=== PATIENT | male | born 2000 | race Caucasian/White ===

== ENCOUNTER 2022-08-19 20:40 | Inpatient (IN) ==
[2022-08-19] MEDS ORDERED: SODIUM CHLORIDE 0.9% 1000ML 1,000 ML IV ONE (21:05)
[2022-08-19] MEDS ORDERED: KETOROLAC TROMETHAMINE 15 MG/ML VIAL IV STA (21:05)
--- NOTE | 2022-08-19 21:14 | Emergency Department Note ---
Impression & Plan Lower abdominal pain, Vomiting, Abnormal abdominal CT scan, Confusion ED Provider Note NAME: MELVI SHAH AGE: 22 SEX: M : 2000 ARRIVES VIA: Ambulance INFORMANT: [Patient][Father, EMS, nursing] ED PROVIDER(S): [Trey Aguirre MD] CHIEF COMPLAINT: Abdominal pain HISTORY OF PRESENT ILLNESS: The patient is a 22-year-old male who has had what the father states is the flu for 3 days. He has had vomiting. No fever reported. He seemed to be getting somewhat better but then tonight, about 3 hours ago, began having severe lower abdominal pain, mostly on the left. He was brought by ambulance. In route, he was given 6 mg IV morphine, 4 mg of IV Zofran. There has been no cough or congestion. The patient actually was given some laxatives as he was not having bowel movements. He is now starting to move his bowels. As per the father, the patient was around other people with similar symptoms. He describes it as a local flu bug. The patient is not answering questions now, his father states that he was fine earlier, he thinks the pain medication made him confused and sleepy. PMHx/PSHx: See Below SOCIAL HISTORY: See Below. PHYSICAL EXAM: GENERAL: Patient is in mild distress from pain. HEENT: No acute trauma, normocephalic atraumatic, mucous membranes dry, no nasal congestion. NECK: No stridor, no adenopathy, no meningismus, trachea is midline. LUNGS: Clear to auscultation bilaterally, no wheeze, no rhonchi, breath sounds equal. HEART: Without murmurs gallops or rubs, regular rate and rhythm. ABDOMEN: Soft, tender to the lower abdomen bilaterally but mostly on the left, no true peritonitis. No abdominal distention. EXTREMITIES: No cyanosis or edema, full range of motion of all the joints without pain or difficulty, no signs for acute trauma. NEUROLOGIC: Somnolent and sleepy, seemingly slightly confused, no acute motor or sensory deficits, no focal weakness. SKIN: No rash, no jaundice, no diaphoresis. Groin: No obvious hernia. DIFFERENTIAL DIAGNOSIS: Appendicitis, diverticulitis, colitis, bowel obstruction, dehydration, electrolyte imbalance, hernia, viral illness, UTI, others. EMERGENCY DEPARTMENT COURSE/PROCEDURES: Prior/Outside records reviewed: EMS records. MEDICAL DECISION MAKING: There is no leukocytosis or concerning anemia. There is a normal platelet count. No renal failure or significant electrolyte abnormality. No concerning liver enzyme elevation. No evidence for pancreatitis. Urinalysis shows trace ketones, no infection. COVID, influenza and RSV test were negative. Chest film per my review did not show pneumonia, free air or pneumothorax. Abdominal and pelvis CT showed some trace to mild free pelvic fluid, no acute surgical process, no bowel obstruction, no free air. No appendicitis. On exam, the patient was tender in the lower abdomen, mostly on the left. He was not febrile. Patient received IV saline, IV morphine, IV Toradol and IV Tylenol. He was given IV Zosyn as empiric antibiotic coverage. I did call and speak with the general surgeon, Dr. Noble. At this point, there is no acute surgical intervention required. Observation in the hospital on the medicine service was felt warranted given his presentation and CT fin dings. I did speak with the radiologist about the CT reading. She confirmed no appendicitis or acute surgical process even on a second read. I spoke to the family, I talked to the patient. The patient is feeling improved. He does not have any groin or flank pain. His pain is in the lower abdomen but mostly on the left. He does feel improved compared to when he first arrived, he is much more comfortable. At this point, the cause for the pain is unclear. A viral illness certainly is a possibility. He may have an enteritis. Hospitalization with a a watch and wait approach has been suggested. I spoke with the case management team, the on-call hospitalist was consulted. Of note, as the patient was somewhat confused on my initial evaluation, I did order a CT of the brain, no acute bleed or mass effect seen. The patient's confusion cleared during his ED stay. The confusion certainly may have been from the medication, morphine, administered prior to arrival. DISPOSITION: The patient's presentation and findings warrant a hospital stay. Past Med/Surg History Medical History No significant medical problems Social History Smoking Status: Never smoker Feels Safe at Home: Yes Allergies Allergies Allergy/AdvReac Type Severity Reaction Status Date / Time No Known Allergies Allergy Verified 08/19/22 21:29 Home Meds Home Medications Medication Instructions Recorded Confirmed No Known Home Medications 08/19/22 08/19/22 Results & Data (ED) Vital Signs Vital Signs - 24 hr 08/19/22 20:53 08/19/22 20:54 08/19/22 20:52 Temperature 36.7 C Temperature Source Oral Pulse Rate 79 71 79 Pulse Rate from SpO2 Sensor 77 Respiratory Rate 17 12 Blood Pressure 114/69 Blood Pressure Mean 84 Pulse Oximetry 95 93 Oxygen Delivery Method Nasal Cannula Oxygen Flow Rate 3 Sepsis Recent Fever Within 48 Hours No Sepsis New/Unexplained Change in Mental Status No Sepsis Action Taken by Nursing No Action Required 08/19/22 21:00 08/19/22 21:00 08/19/22 21:10 Temperature Temperature Source Pulse Rate 64 67 Pulse Rate from SpO2 Sensor 64 67 Respiratory Rate 18 16 Blood Pressure 112/73 Blood Pressure Mean 86 Pulse Oximetry 97 92 Oxygen Delivery Method Oxygen Flow Rate Sepsis Recent Fever Within 48 Hours Sepsis New/Unexplained Change in Mental Status Sepsis Action Taken by Nursing 08/19/22 21:20 08/19/22 21:30 08/19/22 21:30 Temperature Temperature Source Pulse Rate 62 63 Pulse Rate from SpO2 Sensor Respiratory Rate 19 16 Blood Pressure 122/69 Blood Pressure Mean 86 Pulse Oximetry Oxygen Delivery Method Oxygen Flow Rate Sepsis Recent Fever Within 48 Hours Sepsis New/Unexplained Change in Mental Status Sepsis Action Taken by Nursing 08/19/22 21:40 08/19/22 21:50 08/19/22 22:00 Temperature Temperature Source Pulse Rate 78 59 L Pulse Rate from SpO2 Sensor 59 L Respiratory Rate 18 16 Blood Pressure 113/66 Blood Pressure Mean 81 Pulse Oximetry 99 Oxygen Delivery Method Oxygen Flow Rate Sepsis Recent Fever Within 48 Hours Sepsis New/Unexplained Change in Mental Status Sepsis Action Taken by Nursing 08/19/22 22:00 08/19/22 22:10 08/19/22 22:20 Temperature Temperature Source Pulse Rate 73 61 62 Pulse Rate from SpO2 Sensor 68 60 62 Respiratory Rate 19 14 15 Blood Pressure Blood Pressure Mean Pulse Oximetry 98 98 99 Oxygen Delivery Method Oxygen Flow Rate Sepsis Recent Fever Within 48 Hours Sepsis New/Unexplained Change in Mental Status Sepsis Action Taken by Nursing 08/19/22 22:30 08/19/22 22:30 08/19/22 22:57 Temperature Temperature Source Pulse Rate 70 71 Pulse Rate from SpO2 Sensor 63 69 Respiratory Rate 15 17 Blood Pressure 103/61 Blood Pressure Mean 75 Pulse Oximetry 98 93 Oxygen Delivery Method Oxygen Flow Rate Sepsis Recent Fever Within 48 Hours Sepsis New/Unexplained Change in Mental Status Sepsis Action Taken by Nursing 08/19/22 23:00 08/19/22 23:00 08/19/22 23:10 Temperature Temperature Source Pulse Rate 59 L 62 Pulse Rate from SpO2 Sensor 59 L 61 Respiratory Rate 18 14 Blood Pressure 110/72 Blood Pressure Mean 84 Pulse Oximetry 95 98 Oxygen Delivery Method Oxygen Flow Rate Sepsis Recent Fever Within 48 Hours Sepsis New/Unexplained Change in Mental Status Sepsis Action Taken by Assisted Medications Current Medication List: was personally reviewed by me Laboratory Data Attestation: I reviewed the patient's lab results. 08/19/22 20:56 08/19/22 20:56 Lab Results 08/19/22 08/19/22 08/19/22 Range/Units 20:56 20:56 23:00 WBC 8.84 (4.8-10.8) K/ul RBC 4.57 L (4.70-6.10) M/uL Hgb 13.8 L (14.0-18.0) g/dl Hct 39.6 L (42.0-52.0) % MCV 86.7 (80.0-100.0) fL MCH 30.2 (25.0-34.0) pg MCHC 34.8 (32.0-36.0) g/dL RDW Std Deviation 39.1 (36.4-46.3) fL RDW Coeff of Kathrine 12.3 (11.5-14.5) % Plt Count 190 (130-400) K/uL MPV 10.2 (9.4-12.4) fL Immature Gran % (Auto) 0.1 % Neut % (Auto) 63.7 % Lymph % (Auto) 23.6 % Davidson % (Auto) 11.7 % Eos % (Auto) 0.6 % Baso % (Auto) 0.3 % Neut # (Auto) 5.63 (1.40-6.50) K/uL Lymph # (Auto) 2.09 (1.2-3.4) K/uL Davidson # (Auto) 1.03 H (0.11-0.59) K/uL Eos # (Auto) 0.05 (0-0.50) K/uL Baso # (Auto) 0.03 (0-0.2) K/uL Immature Gran # (Auto) 0.01 (0.01-0.20) K/uL Sodium 137 (136-145) mmol/L Potassium 3.6 (3.5-5.1) mmol/L Chloride 101 (98-107) mmol/L Carbon Dioxide 28 (21-32) mmol/L Anion Gap 8 (3-11) BUN 14 (6-23) mg/dl Creatinine 0.74 (0.6-1.4) mg/dl Est Cr Clr Drug Dosing 154.1 ml/min Est GFR ( Amer) > 150.0 ml/min Est GFR (Non-Af Amer) 132.8 ml/min BUN/Creatinine Ratio 18.9 (10-20) Glucose 92 (70-99(Fasting)) mg/dl Calcium 9.0 (8.5-10.1) mg/dl Total Bilirubin 0.6 (0.2-1.0) mg/dl AST 29 (13-39) U/L ALT 26 (7-52) U/L Alkaline Phosphatase 51 (34-104) U/L Total Protein 7.6 (6.0-8.3) gm/dl Albumin 4.3 (3.4-5.0) gm/dl Globulin 3.3 (2.5-4.0) gm/dl Albumin/Globulin Ratio 1.3 (0.9-2) Lipase 10 L (11-82) U/L Urine Color Urine Appearance (Clear) Urine pH (4.5-7.5) Ur Specific Gause (1.000-1.030) Urine Protein (Negative) Urine Glucose (UA) (Negative) Urine Ketones (Negative) Urine Blood (Negative) Urine Nitrite (Negative) Urine Bilirubin (Negative) Urine Urobilinogen (Negative) Ur Leukocyte Esterase (Negative) Urine WBC (Auto) (0-5) /hpf Urine RBC (Auto) (0-4) /hpf U Hyaline Cast (Auto) (0-5) /lpf U Epithel Cells (Auto) (0-5) /lpf Urine Bacteria (Auto) (Negative) SARS-CoV-2 (PCR) NEGATIVE (Negative) Influenza Type A (PCR) Negative (Neg) Influenza Type B (PCR) Negative (Neg) RSV (RT-PCR) Negative (Neg) 08/19/22 Range/Units 23:55 WBC (4.8-10.8) K/ul RBC (4.70-6.10) M/uL Hgb (14.0-18.0) g/dl Hct (42.0-52.0) % MCV (80.0-100.0) fL MCH (25.0-34.0) pg MCHC (32.0-36.0) g/dL RDW Std Deviation (36.4-46.3) fL RDW Coeff of Kathrine (11.5-14.5) % Plt Count (130-400) K/uL MPV (9.4-12.4) fL Immature Gran % (Auto) % Neut % (Auto) % Lymph % (Auto) % Davidson % (Auto) % Eos % (Auto) % Baso % (Auto) % Neut # (Auto) (1.40-6.50) K/uL Lymph # (Auto) (1.2-3.4) K/uL Davidson # (Auto) (0.11-0.59) K/uL Eos # (Auto) (0-0.50) K/uL Baso # (Auto) (0-0.2) K/uL Immature Gran # (Auto) (0.01-0.20) K/uL Sodium (136-145) mmol/L Potassium (3.5-5.1) mmol/L Chloride (98-107) mmol/L Carbon Dioxide (21-32) mmol/L Anion Gap (3-11) BUN (6-23) mg/dl Creatinine (0.6-1.4) mg/dl Est Cr Clr Drug Dosing ml/min Est GFR ( Amer) ml/min Est GFR (Non-Af Amer) ml/min BUN/Creatinine Ratio (10-20) Glucose (70-99(Fasting)) mg/dl Calcium (8.5-10.1) mg/dl Total Bilirubin (0.2-1.0) mg/dl AST (13-39) U/L ALT (7-52) U/L Alkaline Phosphatase (34-104) U/L Total Protein (6.0-8.3) gm/dl Albumin (3.4-5.0) gm/dl Globulin (2.5-4.0) gm/dl Albumin/Globulin Ratio (0.9-2) Lipase (11-82) U/L Urine Color Yellow Urine Appearance Clear (Clear) Urine pH 6.0 (4.5-7.5) Ur Specific Gause 1.037 H (1.000-1.030) Urine Protein Trace H (Negative) Urine Glucose (UA) Negative (Negative) Urine Ketones 1+ H (Negative) Urine Blood Negative (Negative) Urine Nitrite Negative (Negative) Urine Bilirubin Negative (Negative) Urine Urobilinogen Negative (Negative) Ur Leukocyte Esterase Negative (Negative) Urine WBC (Auto) 1-5 (0-5) /hpf Urine RBC (Auto) 0-4 (0-4) /hpf U Hyaline Cast (Auto) 0 (0-5) /lpf U Epithel Cells (Auto) 0-5 (0-5) /lpf Urine Bacteria (Auto) Negative (Negative) SARS-CoV-2 (PCR) (Negative) Influenza Type A (PCR) (Neg) Influenza Type B (PCR) (Neg) RSV (RT-PCR) (Neg) Administered Medications Discontinued Medications Sodium Chloride (Nss 1000ml) 1,000 mls @ 999 mls/hr IV .[id number] ONE Stop: 08/19/22 22:05 Last Infusion: 08/19/22 22:36 Dose: 0 mls/hr Documented By: Admin: 08/19/22 21:41 Dose: 999 mls/hr Documented By: OCTAVIANO Acetaminophen (Ofirmev) 1,000 mg in 100 mls @ 400 mls/hr IV NOW STA Stop: 08/19/22 23:16 Last Infusion: 08/19/22 23:51 Dose: 0 mls/hr Documented By: RSJatinder Admin: 08/19/22 23:29 Dose: 400 mls/hr Documented By: SISSY Piperacillin Sod/Tazobactam Sod (Zosyn) 4.5 gm in 120 mls @ 240 mls/hr IV NOW ONE Stop: 08/20/22 00:03 Last Infusion: 08/20/22 00:15 Dose: 0 mls/hr Documented By: Admin: 08/19/22 23:50 Dose: 240 mls/hr Documented By: SISSY Ioversol (Optiray 350 100ml) 85 ml IV ONCE ONE Stop: 08/19/22 22:45 Last Admin: 08/19/22 22:45 Dose: 85 ml Documented By: MATT Ketorolac Tromethamine (Ketorolac Tromethamine 15 Mg/Ml Vial) 15 mg IV NOW STA Stop: 08/19/22 21:06 Last Admin: 08/19/22 21:42 Dose: 15 mg Documented By: OCTAVIANO Imaging Data My Impression: Chest x-ray: Per my review there is no mediastinal widening, pneumonia or pneumothorax. Radiologist's Impression: Abdomen/Pelvis CT 08/19/22 21:05 Exam(s): CT ABDOMEN + PELVIS With Contrast EXAM: CT Abdomen and Pelvis With Intravenous Contrast CLINICAL HISTORY: Reason for exam: lower abd pain. TECHNIQUE: Axial computed tomography images of the abdomen and pelvis with intravenous contrast. Automated exposure control was utilized for the study. A dose lowering technique was utilized adhering to the principles of ALARA. Moderate artifact from bilateral arms in the field of view. CONTRAST: 85 ml Optiray 350 COMPARISON: None. FINDINGS: Lung bases: Clear. Liver: Unremarkable. Gallbladder and bile ducts: Normal gallbladder. No ductal dilation. Pancreas: No ductal dilation. Spleen: Unremarkable. Adrenals: Unremarkable. No mass. Kidneys and ureters: No obvious pyelonephritis or hydronephrosis. Stomach and bowel: No obstruction. Appendix: Normal, retrocecal. Intraperitoneal space: Trace pelvic free fluid. No free air or significant ascites. Bones/joints: No acute fracture. Soft tissues: Unremarkable. Vasculature: No abdominal aortic aneurysm. Lymph nodes: No enlarged lymph nodes. Bladder: No stones. Reproductive: Unremarkable as visualized. IMPRESSION: 1. Mild pelvic free fluid is nonspecific. 2. Normal appendix. 3. No definite acute abnormality is seen, with moderate artifact secondary to artifact from bilateral arms in the field of view. Electronically signed by: Fatmata Pierce M.D. 08/19/22 23:[address] 08/19/22 21:05 Exam(s): CT HEAD Without Contrast EXAM: CT Head Without Intravenous Contrast CLINICAL HISTORY: Reason for exam: altered. TECHNIQUE: Axial computed tomography images of the head/brain without intravenous contrast. CTDI is 37.25 mGy and DLP is 537.48 mGy-cm. Automated exposure control was utilized for the study. A dose lowering technique was utilized adhering to the principles of ALARA. COMPARISON: None. FINDINGS: Brain: No edema or acute infarct. No acute hemorrhage. No abnormal density in the brain parenchyma. Ventricles: No hydrocephalus or midline shift. Bones/joints: No skull fracture. Soft tissues: No scalp hematoma. Sinuses: Clear. Mastoid air cells: No mastoid effusion. IMPRESSION: 1. No acute infarct, bleed, or acute intracranial abnormality. 2. Normal exam. Electronically signed by: Fatmata Pierce M.D. 08/19/22 23:02 PM Discharge Plan Visit Data Chief Complaint: Abdominal Pain Stated Complaint: ABDOMINAL PAIN ED Provider: Trey Aguirre Discharge Problem: Lower abdominal pain, Vomiting, Abnormal abdominal CT scan, Confusion Patient Disposition: Admitted As Inpatient Condition: Fair Forms Stand Alone Forms: [facility] [place] [employer] Prescriptions Prescriptions: No Action No Known Home Medications Referrals Referrals: PCP,NO [Primary Care Provider] -
[2022-08-19 21:58] LABS: Basophils # (auto) 0.03 K/uL (0-0.2); Basophils % (auto) 0.3 %; Eosinophils # (auto) 0.05 K/uL (0-0.50); Eosinophils % (auto) 0.6 %; Hematocrit (blood only) 39.6 % (42.0-52.0); Hemoglobin 13.8 g/dl (14.0-18.0); Immature Granulocytes # (auto) 0.01 K/uL (0.01-0.20); Immature Granulocytes % (auto) 0.1 %; Lymphocytes # (auto) 2.09 K/uL (1.2-3.4); Lymphocytes % (auto) 23.6 %; Mean Corpuscular Hemoglobin 30.2 pg (25.0-34.0); Mean Corpuscular Hgb Conc 34.8 g/dL (32.0-36.0); Mean Corpuscular Volume 86.7 fL (80.0-100.0); Mean Platelet Volume 10.2 fL (9.4-12.4); Monocytes # (auto) 1.03 K/uL (0.11-0.59); Monocytes % (auto) 11.7 %; Neutrophils # (auto) 5.63 K/uL (1.40-6.50); Neutrophils % (auto) 63.7 %; Platelet Count 190 K/uL (130-400); RDW Coefficient of Variation 12.3 % (11.5-14.5); RDW Standard Deviation 39.1 fL (36.4-46.3); Red Blood Count 4.57 M/uL (4.70-6.10); White Blood Count 8.84 K/ul (4.8-10.8)
[2022-08-19 22:30] LABS: Alanine Aminotransferase 26 U/L (7-52); Albumin Globulin Ratio 1.3 (0.9-2); Albumin Level 4.3 gm/dl (3.4-5.0); Alkaline Phosphatase 51 U/L (34-104); Anion Gap 8 (3-11); Aspartate Aminotransferase 29 U/L (13-39); BUN Creatinine Ratio 18.9 (10-20); Bilirubin,Total 0.6 mg/dl (0.2-1.0); Blood Urea Nitrogen 14 mg/dl (6-23); Carbon Dioxide 28 mmol/L (21-32); Chloride 101 mmol/L (98-107); Creatinine Clr Calc Pharmacy 154.1 ml/min; Est GFR (African American) > 150.0 ml/min; Est GFR (Non-African American) 132.8 ml/min; Globulin 3.3 gm/dl (2.5-4.0); Glucose 92 mg/dl (70-99(Fasting)); Lipase 10 U/L (11-82); Potassium 3.6 mmol/L (3.5-5.1); Sodium 137 mmol/L (136-145); Total Protein 7.6 gm/dl (6.0-8.3)
[2022-08-19] MEDS ORDERED: OPTIRAY 350 100ml IV ONE (22:44)
[2022-08-19] MEDS ORDERED: ACETAMINOPHEN 1,000 MG/100 ML VIAL IV STA (23:02)
--- NOTE | 2022-08-19 23:04 | CT Scan Report ---
Exam(s): CT HEAD Without Contrast EXAM: CT Head Without Intravenous Contrast CLINICAL HISTORY: Reason for exam: altered. TECHNIQUE: Axial computed tomography images of the head/brain without intravenous contrast. CTDI is 37.25 mGy and DLP is 537.48 mGy-cm. Automated exposure control was utilized for the study. A dose lowering technique was utilized adhering to the principles of ALARA. COMPARISON: None. FINDINGS: Brain: No edema or acute infarct. No acute hemorrhage. No abnormal density in the brain parenchyma. Ventricles: No hydrocephalus or midline shift. Bones/joints: No skull fracture. Soft tissues: No scalp hematoma. Sinuses: Clear. Mastoid air cells: No mastoid effusion. IMPRESSION: 1. No acute infarct, bleed, or acute intracranial abnormality. 2. Normal exam. Electronically signed by: Fatmata Pierce M.D. 08/19/22 23:02 PM
[2022-08-19] MEDS ORDERED: MoRPHine SULFATE 2 MG/ML CARP IV PRN (23:08)
--- NOTE | 2022-08-19 23:28 | CT Scan Report ---
Exam(s): CT ABDOMEN + PELVIS With Contrast EXAM: CT Abdomen and Pelvis With Intravenous Contrast CLINICAL HISTORY: Reason for exam: lower abd pain. TECHNIQUE: Axial computed tomography images of the abdomen and pelvis with intravenous contrast. Automated exposure control was utilized for the study. A dose lowering technique was utilized adhering to the principles of ALARA. Moderate artifact from bilateral arms in the field of view. CONTRAST: 85 ml Optiray 350 COMPARISON: None. FINDINGS: Lung bases: Clear. Liver: Unremarkable. Gallbladder and bile ducts: Normal gallbladder. No ductal dilation. Pancreas: No ductal dilation. Spleen: Unremarkable. Adrenals: Unremarkable. No mass. Kidneys and ureters: No obvious pyelonephritis or hydronephrosis. Stomach and bowel: No obstruction. Appendix: Normal, retrocecal. Intraperitoneal space: Trace pelvic free fluid. No free air or significant ascites. Bones/joints: No acute fracture. Soft tissues: Unremarkable. Vasculature: No abdominal aortic aneurysm. Lymph nodes: No enlarged lymph nodes. Bladder: No stones. Reproductive: Unremarkable as visualized. IMPRESSION: 1. Mild pelvic free fluid is nonspecific. 2. Normal appendix. 3. No definite acute abnormality is seen, with moderate artifact secondary to artifact from bilateral arms in the field of view. Electronically signed by: Fatmata Pierce M.D. 08/19/22 23:26 PM
[2022-08-19] MEDS ORDERED: PIPERACILLIN/TAZOBACTAM 4.5 GM/120 ML BAG IV ONE (23:34)
[2022-08-19 23:58] LABS: Influenza A virus by PCR Negative (Neg); Influenza B virus by PCR Negative (Neg); RSV by PCR Negative (Neg); SARS CoV2 RNA(COVID-19) Ceph NEGATIVE (Negative)
[2022-08-20 00:18] LABS: Appearance Urine Clear (Clear); Bacteria Urine Automated Negative (Negative); Bilirubin Urine Negative (Negative); Blood Urine Negative (Negative); Cast Urine Automated 0 /lpf (0-5); Color Urine Yellow; Epithelial Cell Urine Auto 0-5 /lpf (0-5); Glucose Urine UA Negative (Negative); Ketones Urine 1+ (Negative); Leukocyte Esterase Urine Negative (Negative); Nitrite Urine Negative (Negative); Protein Urine Trace (Negative); RBC Urine Automated 0-4 /hpf (0-4); Specific Gravity Urine 1.037 (1.000-1.030); Urobilinogen Urine Negative (Negative)
--- NOTE | 2022-08-20 00:25 | History & Physical Report ---
Date of Service August 20, 2022 Assessment & Plan (1) Lower abdominal pain: Plan: Possible viral illness Free pelvic fluid on CT read Patient nontoxic. [facility] General Surgery consult RE abdominal pain with free pelvic fluid on CT read. (ER provider already in touch with Dr. Noble who recommends bowel rest and antibiotic coverage for now.) DVT prophylaxis. Lovenox subcu Full code Text document was generated using [employer] voice recognition software. It may contain grammatical or spelling errors. Kindly contact undersigned for clarification of any documentation item in question. History of Present Illness Chief Complaint: Abdominal pain, vomiting Primary Care Provider: NO PCP History obtained from patient, family, and records. No significant medical history. Few days history of achy left lower quadrant pain with 1 episode of emesis. Initial constipation followed by loose stools after laxative intake. Dry cough and sore throat symptoms. Patient denies chest pain, SOB. Possible sick contacts at a recent gathering. Patient has not received COVID-19 vaccination. Patient near syncopal events. Somewhat confused as per family. IV Zosyn administered at the ER. 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 Allergies Allergy/AdvReac Type Severity Reaction Status Date / Time No Known Allergies Allergy Verified 08/19/22 21:29 Home Medications Medication Instructions Recorded Confirmed Type No Known Home Medications 08/19/22 08/19/22 History Past Med/Surg History Medical History No significant medical problems Social History Smoking Status: Never smoker Feels Safe at Home: Yes Review of Systems Review of Systems: As per HPI, all other systems reviewed and negative Physical Exam Physical Exam: GENERAL: Comfortable, wane, no respiratory distress SKIN: Normal color, warm HEENT: [place] palpebral conjunctivae, no ptosis, dry buccal mucosa NECK : Supple, no tenderness CHEST : CTA, no tenderness HEART : RRR, no obvious murmurs ABDOMEN: Some distention, left lower quadrant tenderness EXTREMITIES : No LE swelling/tenderness, no other conspicuous deformities noted NEUROLOGIC : Coherent, no facial asymmetry, no other gross focality Results & Data Results & Data ([facility]) Vital Signs (Past 12 Hours) Vital Signs Temp Pulse Resp BP Pulse Ox O2 Del Method O2 Flow Rate 08/19/22 23:10 62 14 98 08/19/22 23:00 59 L 18 95 08/19/22 23:00 110/72 08/19/22 22:57 71 17 93 08/19/22 22:30 70 15 98 08/19/22 22:30 103/61 08/19/22 22:20 62 15 99 08/19/22 22:10 61 14 98 08/19/22 22:00 73 19 98 08/19/22 22:00 113/66 08/19/22 21:50 59 L 16 99 08/19/22 21:40 78 18 08/19/22 21:30 63 16 08/19/22 21:30 122/69 08/19/22 21:20 62 19 08/19/22 21:10 67 16 92 08/19/22 21:00 64 18 97 08/19/22 21:00 112/73 08/19/22 20:52 79 12 93 08/19/22 20:54 36.7 C 71 17 114/69 95 Nasal Cannula 3 08/19/22 20:53 79 Laboratory Results Laboratory Results WBC 8.84 K/ul (4.8-10.8) 08/19/22 20:56 RBC 4.57 M/uL (4.70-6.10) L 08/19/22 20:56 Hgb 13.8 g/dl (14.0-18.0) L 08/19/22 20:56 Hct 39.6 % (42.0-52.0) L 08/19/22 20:56 MCV 86.7 fL (80.0-100.0) 08/19/22 20:56 MCH 30.2 pg (25.0-34.0) 08/19/22 20:56 MCHC 34.8 g/dL (32.0-36.0) 08/19/22 20:56 RDW Std Deviation 39.1 fL (36.4-46.3) 08/19/22 20:56 RDW Coeff of Kathrine 12.3 % (11.5-14.5) 08/19/22 20:56 Plt Count 190 K/uL (130-400) 08/19/22 20:56 MPV 10.2 fL (9.4-12.4) 08/19/22 20:56 Immature Gran % (Auto) 0.1 % 08/19/22 20:56 Neut % (Auto) 63.7 % 08/19/22 20:56 Lymph % (Auto) 23.6 % 08/19/22 20:56 [place] % (Auto) 11.7 % 08/19/22 20:56 Eos % (Auto) 0.6 % 08/19/22 20:56 Baso % (Auto) 0.3 % 08/19/22 20:56 Neut # (Auto) 5.63 K/uL (1.40-6.50) 08/19/22 20:56 Lymph # (Auto) 2.09 K/uL (1.2-3.4) 08/19/22 20:56 [place] # (Auto) 1.03 K/uL (0.11-0.59) H 08/19/22 20:56 Eos # (Auto) 0.05 K/uL (0-0.50) 08/19/22 20:56 Baso # (Auto) 0.03 K/uL (0-0.2) 08/19/22 20:56 Immature Gran # (Auto) 0.01 K/uL (0.01-0.20) 08/19/22 20:56 Sodium 137 mmol/L (136-145) 08/19/22 20:56 Potassium 3.6 mmol/L (3.5-5.1) 08/19/22 20:56 Chloride 101 mmol/L (98-107) 08/19/22 20:56 Carbon Dioxide 28 mmol/L (21-32) 08/19/22 20:56 Anion Gap 8 (3-11) 08/19/22 20:56 BUN 14 mg/dl (6-23) 08/19/22 20:56 Creatinine 0.74 mg/dl (0.6-1.4) 08/19/22 20:56 Est Cr Clr Drug Dosing 154.1 ml/min 08/19/22 20:56 Est GFR ( Amer) > 150.0 ml/min 08/19/22 20:56 Est GFR (Non-Af Amer) 132.8 ml/min 08/19/22 20:56 BUN/Creatinine Ratio 18.9 (10-20) 08/19/22 20:56 Glucose 92 mg/dl (70-99(Fasting)) 08/19/22 20:56 Calcium 9.0 mg/dl (8.5-10.1) 08/19/22 20:56 Total Bilirubin 0.6 mg/dl (0.2-1.0) 08/19/22 20:56 AST 29 U/L (13-39) 08/19/22 20:56 ALT 26 U/L (7-52) 08/19/22 20:56 Alkaline Phosphatase 51 U/L (34-104) 08/19/22 20:56 Total Protein 7.6 gm/dl (6.0-8.3) 08/19/22 20:56 Albumin 4.3 gm/dl (3.4-5.0) 08/19/22 20:56 Globulin 3.3 gm/dl (2.5-4.0) 08/19/22 20:56 Albumin/Globulin Ratio 1.3 (0.9-2) 08/19/22 20:56 Lipase 10 U/L (11-82) L 08/19/22 20:56 Urine Color Yellow 08/19/22 23:55 Urine Appearance Clear (Clear) 08/19/22 23:55 Urine pH 6.0 (4.5-7.5) 08/19/22 23:55 Ur Specific [place] 1.037 (1.000-1.030) H 08/19/22 23:55 Urine Protein Trace (Negative) H 08/19/22 23:55 Urine Glucose (UA) Negative (Negative) 08/19/22 23:55 Urine Ketones 1+ (Negative) H 08/19/22 23:55 Urine Blood Negative (Negative) 08/19/22 23:55 Urine Nitrite Negative (Negative) 08/19/22 23:55 Urine Bilirubin Negative (Negative) 08/19/22 23:55 Urine Urobilinogen Negative (Negative) 08/19/22 23:55 Ur Leukocyte Esterase Negative (Negative) 08/19/22 23:55 Urine WBC (Auto) 1-5 /hpf (0-5) 08/19/22 23:55 Urine RBC (Auto) 0-4 /hpf (0-4) 08/19/22 23:55 U Hyaline Cast (Auto) 0 /lpf (0-5) 08/19/22 23:55 U Epithel Cells (Auto) 0-5 /lpf (0-5) 08/19/22 23:55 Urine Bacteria (Auto) Negative (Negative) 08/19/22 23:55 SARS-CoV-2 (PCR) NEGATIVE (Negative) 08/19/22 23:00 Influenza Type A (PCR) Negative (Neg) 08/19/22 23:00 Influenza Type B (PCR) Negative (Neg) 08/19/22 23:00 RSV (RT-PCR) Negative (Neg) 08/19/22 23:00 Impressions Abdomen/Pelvis CT 08/19/22 21:05 Exam(s): CT ABDOMEN + PELVIS With Contrast EXAM: CT Abdomen and Pelvis With Intravenous Contrast CLINICAL HISTORY: Reason for exam: lower abd pain. TECHNIQUE: Axial computed tomography images of the abdomen and pelvis with intravenous contrast. Automated exposure control was utilized for the study. A dose lowering technique was utilized adhering to the principles of ALARA. Moderate artifact from bilateral arms in the field of view. CONTRAST: 85 ml Optiray 350 COMPARISON: None. FINDINGS: Lung bases: Clear. Liver: Unremarkable. Gallbladder and bile ducts: Normal gallbladder. No ductal dilation. Pancreas: No ductal dilation. Spleen: Unremarkable. Adrenals: Unremarkable. No mass. Kidneys and ureters: No obvious pyelonephritis or hydronephrosis. Stomach and bowel: No obstruction. Appendix: Normal, retrocecal. Intraperitoneal space: Trace pelvic free fluid. No free air or significant ascites. Bones/joints: No acute fracture. Soft tissues: Unremarkable. Vasculature: No abdominal aortic aneurysm. Lymph nodes: No enlarged lymph nodes. Bladder: No stones. Reproductive: Unremarkable as visualized. IMPRESSION: 1. Mild pelvic free fluid is nonspecific. 2. Normal appendix. 3. No definite acute abnormality is seen, with moderate artifact secondary to artifact from bilateral arms in the field of view. Electronically signed by: Fatmata Pierce M.D. 08/19/22 23:[address] 08/19/22 21:05 Exam(s): CT HEAD Without Contrast EXAM: CT Head Without Intravenous Contrast CLINICAL HISTORY: Reason for exam: altered. TECHNIQUE: Axial computed tomography images of the head/brain without intravenous contrast. CTDI is 37.25 mGy and DLP is 537.48 mGy-cm. Automated exposure control was utilized for the study. A dose lowering technique was utilized adhering to the principles of ALARA. COMPARISON: None. FINDINGS: Brain: No edema or acute infarct. No acute hemorrhage. No abnormal density in the brain parenchyma. Ventricles: No hydrocephalus or midline shift. Bones/joints: No skull fracture. Soft tissues: No scalp hematoma. Sinuses: Clear. Mastoid air cells: No mastoid effusion. IMPRESSION: 1. No acute infarct, bleed, or acute intracranial abnormality. 2. Normal exam. Electronically signed by: Fatmata Pierce M.D. 08/19/22 23:02 PM
[2022-08-20] MEDS ORDERED: PROMETHAZINE HCL 12.5 MG in SODIUM CHLORIDE 0.9% 50 ML IV PRN (00:29)
[2022-08-20] MEDS ORDERED: traMADol HCL 50 MG TABLET PO PRN (00:29)
[2022-08-20] MEDS ORDERED: D5NSS + 20MEQ KCL 20 MEQ/1,000 ML BAG IV STA (00:33)
[2022-08-20] MEDS: KETOROLAC TROMETHAMINE 15 MG/ML VIAL IV PRN ×3 (00:45→08:15)
[2022-08-20] MEDS ORDERED: ACETAMINOPHEN 325 MG TAB PO PRN (02:27)
[2022-08-20] MEDS: PIPERACILLIN/TAZOBACTAM 3.375 GM in DEXTROSE 5% 100 ML IV SCH ×3 (05:06→21:37)
--- NOTE | 2022-08-20 07:31 | XRay Report ---
SINGLE VIEW CHEST CLINICAL HISTORY: Generalized abdominal pain. FINDINGS: An AP, portable, upright chest radiograph is obtained. No prior studies are available for c omparison at the time of dictation. The examination is degraded by portable technique and patient rot ation. The cardiomediastinal silhouette is top normal for projection. The lungs and pleural spaces a re clear. No pneumothorax is seen. The bony thorax is grossly intact. IMPRESSION: No active disease in the chest. ACT 112: Negative or not required by law. Electronically signed by: Trey Gardner M.D. 08/20/2022 7:30 AM
[2022-08-20 09:36] LABS: Basophils # (auto) 0.03 K/uL (0-0.2); Basophils % (auto) 0.4 %; Eosinophils # (auto) 0.05 K/uL (0-0.50); Eosinophils % (auto) 0.7 %; Hematocrit (blood only) 39.1 % (42.0-52.0); Hemoglobin 13.6 g/dl (14.0-18.0); Immature Granulocytes # (auto) 0.02 K/uL (0.01-0.20); Immature Granulocytes % (auto) 0.3 %; Lymphocytes # (auto) 1.33 K/uL (1.2-3.4); Lymphocytes % (auto) 18.8 %; Mean Corpuscular Hemoglobin 29.9 pg (25.0-34.0); Mean Corpuscular Hgb Conc 34.8 g/dL (32.0-36.0); Mean Corpuscular Volume 85.9 fL (80.0-100.0); Mean Platelet Volume 10.2 fL (9.4-12.4); Monocytes # (auto) 0.71 K/uL (0.11-0.59); Monocytes % (auto) 10.1 %; Neutrophils # (auto) 4.92 K/uL (1.40-6.50); Neutrophils % (auto) 69.7 %; Platelet Count 174 K/uL (130-400); RDW Coefficient of Variation 12.3 % (11.5-14.5); RDW Standard Deviation 38.5 fL (36.4-46.3); Red Blood Count 4.55 M/uL (4.70-6.10); White Blood Count 7.06 K/ul (4.8-10.8)
[2022-08-20 09:54] LABS: Anion Gap 4 (3-11); BUN Creatinine Ratio 16.4 (10-20); Blood Urea Nitrogen 11 mg/dl (6-23); Calcium 8.8 mg/dl (8.5-10.1); Carbon Dioxide 27 mmol/L (21-32); Chloride 106 mmol/L (98-107); Creatinine Clr Calc Pharmacy 170.1 ml/min; Est GFR (African American) > 150.0 ml/min; Est GFR (Non-African American) 138.3 ml/min; Glucose 112 mg/dl (70-99(Fasting)); Potassium 3.9 mmol/L (3.5-5.1); Sodium 137 mmol/L (136-145)
[2022-08-20] MEDS: ENOXAPARIN INJ 40 MG/0.4 ML SYR SQ SCH (09:59)
--- NOTE | 2022-08-20 11:49 | Surgery Consultation ---
Date of Consultation August 20, 2022 Assessment & Plan (1) Lower abdominal pain: 22 year-old male with increasing LUQ/lower abdominal pain since Wednesday with some constipation and then loose stools after miralax. Increasing pain with some confusion. CT scan unremarkable. no leukocytosis, afebrile. Abdominal exam without distention, peritonitis, rigidity, or rebound. Tenderness in LUQ. Plan: No surgical indication at this time. Possible enteritis vs proctitis? Abdomen benign. Continue IV fluids Pain management Abx clear liquids ambulate Dr. Ruffin has seen and examined pt, agrees with above. History of Present Illness Reason for Consultation: Abdominal pain, free pelvic fluid on CT scan Requesting Physician: Jeny Dickson MD Attending Physician: Jeny Dickson MD History of Present Illness Joseph is a 22 year-old male who presented to ED last night with increasing abdominal pain that began on Wednesday. Father present at bedside and states he was having some pain on Wednesday and felt constipated. Gave Miralax on Wednesday and had a normal bowel movement and then some diarrhea x 2. Never history of similar abdominal pain. No fevers or chills. Nobody else sick at home. No nausea or vomiting. CT scan of abdomen and pelvis unremarkable other than some trace pelvic fluid, possible proctitis. No leukocytosis. States he pain is worse now than it was on Wednesday but not as severe as last night. Pain medication helping. No nausea or vomiting. No fevers. 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 Beliefs That Will Affect Care: None Current Living Situation: Family Other Information That Helps Us Care for You: No Feels Safe at Home: Yes Safety Concerns: Feels Safe At This Time Assistive Devices: None Physical Exam Constitutional: WD/WN, vitals as above cooperative and comfortable; no acute distress Neck: normal visual inspection and trachea midline Respiratory: normal respiratory effort; no respiratory distress, no labored breathing and no retractions Gastrointestinal (Abdomen): Inspection/Auscultation: abdomen normal to inspection; abdomen not distended Percussion/Palpation: + abdomen tender (LUQ) and abdomen soft; no guarding, abdomen not rigid and abdomen not firm Skin: no rashes, warm and dry no jaundice Psychiatric: Orientation: alert and oriented x 3 Results & Data ([facility]) Vital Signs (Past 12 Hours) Vital Signs Temp Pulse Pulse Resp BP BP Pulse Ox 08/20/22 07:54 36.9 C 62 16 115/74 98 08/20/22 03:27 08/20/22 03:27 36.6 C 14 111/73 96 08/20/22 01:40 57 L 15 99 08/20/22 01:30 83 14 98 08/20/22 01:30 109/75 08/20/22 01:20 53 L 13 99 08/20/22 01:10 52 L 13 99 08/20/22 01:00 65 16 97 08/20/22 01:00 116/75 08/20/22 00:50 52 L 19 99 08/20/22 00:40 63 17 98 08/20/22 00:30 73 14 98 08/20/22 00:30 124/81 08/20/22 00:20 68 24 99 08/20/22 00:10 60 23 99 08/20/22 00:00 78 10 L 99 08/20/22 00:00 116/74 08/19/22 23:50 64 16 99 08/20/22 00:53 55 L O2 Del Method 08/20/22 07:54 Room Air 08/20/22 03:27 Room Air 08/20/22 03:27 Room Air 08/20/22 01:40 Room Air 08/20/22 01:30 08/20/22 01:30 08/20/22 01:20 08/20/22 01:10 08/20/22 01:00 08/20/22 01:00 08/20/22 00:50 08/20/22 00:40 08/20/22 00:30 08/20/22 00:30 08/20/22 00:20 08/20/22 00:10 08/20/22 00:00 08/20/22 00:00 08/19/22 23:50 08/20/22 00:53 Laboratory Results 08/20/22 08/20/22 08/20/22 Range/Units 11:48 09:11 09:11 WBC 7.06 (4.8-10.8) K/ul RBC 4.55 L (4.70-6.10) M/uL Hgb 13.6 L (14.0-18.0) g/dl Hct 39.1 L (42.0-52.0) % MCV 85.9 (80.0-100.0) fL MCH 29.9 (25.0-34.0) pg MCHC 34.8 (32.0-36.0) g/dL RDW Std Deviation 38.5 (36.4-46.3) fL RDW Coeff of Kathrine 12.3 (11.5-14.5) % Plt Count 174 (130-400) K/uL MPV 10.2 (9.4-12.4) fL Immature Gran % (Auto) 0.3 % Neut % (Auto) 69.7 % Lymph % (Auto) 18.8 % [place] % (Auto) 10.1 % Eos % (Auto) 0.7 % Baso % (Auto) 0.4 % Neut # (Auto) 4.92 (1.40-6.50) K/uL Lymph # (Auto) 1.33 (1.2-3.4) K/uL [place] # (Auto) 0.71 H (0.11-0.59) K/uL Eos # (Auto) 0.05 (0-0.50) K/uL Baso # (Auto) 0.03 (0-0.2) K/uL Immature Gran # (Auto) 0.02 (0.01-0.20) K/uL Sodium 137 (136-145) mmol/L Potassium 3.9 (3.5-5.1) mmol/L Chloride 106 (98-107) mmol/L Carbon Dioxide 27 (21-32) mmol/L Anion Gap 4 (3-11) BUN 11 (6-23) mg/dl Creatinine 0.67 (0.6-1.4) mg/dl Est Cr Clr Drug Dosing 170.1 ml/min Est GFR ( Amer) > 150.0 ml/min Est GFR (Non-Af Amer) 138.3 ml/min BUN/Creatinine Ratio 16.4 (10-20) Glucose 112 H (70-99(Fasting)) mg/dl Calcium 8.8 (8.5-10.1) mg/dl Total Bilirubin (0.2-1.0) mg/dl AST (13-39) U/L ALT (7-52) U/L Alkaline Phosphatase (34-104) U/L Total Protein (6.0-8.3) gm/dl Albumin (3.4-5.0) gm/dl Globulin (2.5-4.0) gm/dl Albumin/Globulin Ratio (0.9-2) Lipase (11-82) U/L Urine Color Pending Urine Appearance Pending (Clear) Urine pH Pending (4.5-7.5) Ur Specific [place] Pending (1.000-1.030) Urine Protein Pending (Negative) Urine Glucose (UA) Pending (Negative) Urine Ketones Pending (Negative) Urine Blood Pending (Negative) Urine Nitrite Pending (Negative) Urine Bilirubin Pending (Negative) Urine Urobilinogen Pending (Negative) Ur Leukocyte Esterase Pending (Negative) Urine WBC (Auto) (0-5) /hpf Urine RBC (Auto) (0-4) /hpf U Hyaline Cast (Auto) (0-5) /lpf U Epithel Cells (Auto) (0-5) /lpf Urine Bacteria (Auto) (Negative) SARS-CoV-2 (PCR) (Negative) Influenza Type A (PCR) (Neg) Influenza Type B (PCR) (Neg) RSV (RT-PCR) (Neg) 08/19/22 08/19/22 08/19/22 Range/Units 23:55 23:00 20:56 WBC (4.8-10.8) K/ul RBC (4.70-6.10) M/uL Hgb (14.0-18.0) g/dl Hct (42.0-52.0) % MCV (80.0-100.0) fL MCH (25.0-34.0) pg MCHC (32.0-36.0) g/dL RDW Std Deviation (36.4-46.3) fL RDW Coeff of Kathrine (11.5-14.5) % Plt Count (130-400) K/uL MPV (9.4-12.4) fL Immature Gran % (Auto) % Neut % (Auto) % Lymph % (Auto) % [place] % (Auto) % Eos % (Auto) % Baso % (Auto) % Neut # (Auto) (1.40-6.50) K/uL Lymph # (Auto) (1.2-3.4) K/uL [place] # (Auto) (0.11-0.59) K/uL Eos # (Auto) (0-0.50) K/uL Baso # (Auto) (0-0.2) K/uL Immature Gran # (Auto) (0.01-0.20) K/uL Sodium 137 (136-145) mmol/L Potassium 3.6 (3.5-5.1) mmol/L Chloride 101 (98-107) mmol/L Carbon Dioxide 28 (21-32) mmol/L Anion Gap 8 (3-11) BUN 14 (6-23) mg/dl Creatinine 0.74 (0.6-1.4) mg/dl Est Cr Clr Drug Dosing 154.1 ml/min Est GFR ( Amer) > 150.0 ml/min Est GFR (Non-Af Amer) 132.8 ml/min BUN/Creatinine Ratio 18.9 (10-20) Glucose 92 (70-99(Fasting)) mg/dl Calcium 9.0 (8.5-10.1) mg/dl Total Bilirubin 0.6 (0.2-1.0) mg/dl AST 29 (13-39) U/L ALT 26 (7-52) U/L Alkaline Phosphatase 51 (34-104) U/L Total Protein 7.6 (6.0-8.3) gm/dl Albumin 4.3 (3.4-5.0) gm/dl Globulin 3.3 (2.5-4.0) gm/dl Albumin/Globulin Ratio 1.3 (0.9-2) Lipase 10 L (11-82) U/L Urine Color Yellow Urine Appearance Clear (Clear) Urine pH 6.0 (4.5-7.5) Ur Specific [place] 1.037 H (1.000-1.030) Urine Protein Trace H (Negative) Urine Glucose (UA) Negative (Negative) Urine Ketones 1+ H (Negative) Urine Blood Negative (Negative) Urine Nitrite Negative (Negative) Urine Bilirubin Negative (Negative) Urine Urobilinogen Negative (Negative) Ur Leukocyte Esterase Negative (Negative) Urine WBC (Auto) 1-5 (0-5) /hpf Urine RBC (Auto) 0-4 (0-4) /hpf U Hyaline Cast (Auto) 0 (0-5) /lpf U Epithel Cells (Auto) 0-5 (0-5) /lpf Urine Bacteria (Auto) Negative (Negative) SARS-CoV-2 (PCR) NEGATIVE (Negative) Influenza Type A (PCR) Negative (Neg) Influenza Type B (PCR) Negative (Neg) RSV (RT-PCR) Negative (Neg) 08/19/22 Range/Units 20:56 WBC 8.84 (4.8-10.8) K/ul RBC 4.57 L (4.70-6.10) M/uL Hgb 13.8 L (14.0-18.0) g/dl Hct 39.6 L (42.0-52.0) % MCV 86.7 (80.0-100.0) fL MCH 30.2 (25.0-34.0) pg MCHC 34.8 (32.0-36.0) g/dL RDW Std Deviation 39.1 (36.4-46.3) fL RDW Coeff of Kathrine 12.3 (11.5-14.5) % Plt Count 190 (130-400) K/uL MPV 10.2 (9.4-12.4) fL Immature Gran % (Auto) 0.1 % Neut % (Auto) 63.7 % Lymph % (Auto) 23.6 % [place] % (Auto) 11.7 % Eos % (Auto) 0.6 % Baso % (Auto) 0.3 % Neut # (Auto) 5.63 (1.40-6.50) K/uL Lymph # (Auto) 2.09 (1.2-3.4) K/uL [place] # (Auto) 1.03 H (0.11-0.59) K/uL Eos # (Auto) 0.05 (0-0.50) K/uL Baso # (Auto) 0.03 (0-0.2) K/uL Immature Gran # (Auto) 0.01 (0.01-0.20) K/uL Sodium (136-145) mmol/L Potassium (3.5-5.1) mmol/L Chloride (98-107) mmol/L Carbon Dioxide (21-32) mmol/L Anion Gap (3-11) BUN (6-23) mg/dl Creatinine (0.6-1.4) mg/dl Est Cr Clr Drug Dosing ml/min Est GFR ( Amer) ml/min Est GFR (Non-Af Amer) ml/min BUN/Creatinine Ratio (10-20) Glucose (70-99(Fasting)) mg/dl Calcium (8.5-10.1) mg/dl Total Bilirubin (0.2-1.0) mg/dl AST (13-39) U/L ALT (7-52) U/L Alkaline Phosphatase (34-104) U/L Total Protein (6.0-8.3) gm/dl Albumin (3.4-5.0) gm/dl Globulin (2.5-4.0) gm/dl Albumin/Globulin Ratio (0.9-2) Lipase (11-82) U/L Urine Color Urine Appearance (Clear) Urine pH (4.5-7.5) Ur Specific [place] (1.000-1.030) Urine Protein (Negative) Urine Glucose (UA) (Negative) Urine Ketones (Negative) Urine Blood (Negative) Urine Nitrite (Negative) Urine Bilirubin (Negative) Urine Urobilinogen (Negative) Ur Leukocyte Esterase (Negative) Urine WBC (Auto) (0-5) /hpf Urine RBC (Auto) (0-4) /hpf U Hyaline Cast (Auto) (0-5) /lpf U Epithel Cells (Auto) (0-5) /lpf Urine Bacteria (Auto) (Negative) SARS-CoV-2 (PCR) (Negative) Influenza Type A (PCR) (Neg) Influenza Type B (PCR) (Neg) RSV (RT-PCR) (Neg) Diagnostic Findings CT Abdomen and Pelvis With Intravenous Contrast CLINICAL HISTORY: Reason for exam: lower abd pain. TECHNIQUE: Axial computed tomography images of the abdomen and pelvis with intravenous contrast. Automated exposure control was utilized for the study. A dose lowering technique was utilized adhering to the principles of ALARA. Moderate artifact from bilateral arms in the field of view. CONTRAST: 85 ml Optiray 350 COMPARISON: None. FINDINGS: Lung bases: Clear. Liver: Unremarkable. Gallbladder and bile ducts: Normal gallbladder. No ductal dilation. Pancreas: No ductal dilation. Spleen: Unremarkable. Adrenals: Unremarkable. No mass. Kidneys and ureters: No obvious pyelonephritis or hydronephrosis. Stomach and bowel: No obstruction. Appendix: Normal, retrocecal. Intraperitoneal space: Trace pelvic free fluid. No free air or significant ascites. Bones/joints: No acute fracture. Soft tissues: Unremarkable. Vasculature: No abdominal aortic aneurysm. Lymph nodes: No enlarged lymph nodes. Bladder: No stones. Reproductive: Unremarkable as visualized. IMPRESSION: 1. Mild pelvic free fluid is nonspecific. 2. Normal appendix. 3. No definite acute abnormality is seen, with moderate artifact secondary to artifact from bilateral arms in the field of view.
[2022-08-20 12:25] LABS: Appearance Urine Clear (Clear); Bilirubin Urine Negative (Negative); Blood Urine Negative (Negative); Color Urine Yellow; Glucose Urine UA Negative (Negative); Ketones Urine Negative (Negative); Leukocyte Esterase Urine Negative (Negative); Nitrite Urine Negative (Negative); Protein Urine Negative (Negative); Specific Gravity Urine 1.008 (1.000-1.030); Urobilinogen Urine Negative (Negative); pH Urine 7.5 (4.5-7.5)
--- NOTE | 2022-08-20 12:46 | Hospitalist Progress Note ---
Date of Service August 20, 2022 Assessment & Plan (1) Lower abdominal pain: Plan 22-year-old male with no significant PMH presented to the ED 08/19 with complaint of left lower quadrant belly pain since Wednesday [employer]. He also reports having sore throat that started about the same time but has been resolved by the time he presented to the ED. 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 Patient has not received COVID-19 vaccination. Patient reports being weak and also reports having diarrhea before presentation. He is being managed for the following: Left lower abdominal pain Possible viral infection Patient presents with left lower belly pain associated with sore throat at onset [see above]. Admitting WBC/lipase/UA/COVID-19, flu screen, RSV were WNL. Admitting imagings including CXR/head CT/CT AP fairly WNL. CTAP with mild pelvic free fluid which is nonspecific. No evidence of renal stones. Continue with symptomatic management, IV fluids, clear liquid diet today. Pain management. General surgery on board, appreciate recommendation. Patient was started on Zosyn 07/23, will continue with same for now. Stool PCR when able, will get Pro-Vicente. DVT prophylaxis: Lovenox subcu Full code Admission and Anticipated Discharge Date Admission Date: August 20, 2022 Subjective Patient seen and examined at bedside as a follow-up of lower abdominal pain, likely viral illness. Patient was lying in bed, on room air, NAD, reports on and off left lower quadrant belly pain, is n.p.o., discussed with surgery, plan to advance diet to liquid. We will continue to monitor. Patient reports he is left lower quadrant pain improving though still significant. Patient reports resolution of his sore throat and also reports having diarrhea yesterday. Patient is moving bowels okay. Physical Exam Physical Exam: GENERAL: Alert and oriented x3. NAD, on RA. HEENT: No pallor, no icterus. Pupils equal, round and reactive to light. Oral mucosa moist. NECK: No JVD, no neck masses. HEART: S1 and S2 heard. Regular rate and rhythm. No murmur, no gallop. RESPIRATORY SYSTEM: Normal AP diameter. No accessory muscle use. No wheezing, no crackles. ABDOMEN: Soft, bowel sounds present, LLQ tender - mild, no distention. CENTRAL NERVOUS SYSTEM: No facial droop. Speech is clear. Obeys simple commands. Moves extremities. EXTREMITIES: No edema, no erythema seen. Results & Data Results & Data ([facility]) Vital Signs (Past 12 Hours) Vital Signs Temp Pulse Pulse Resp BP BP Pulse Ox 08/20/22 07:54 36.9 C 62 16 115/74 98 08/20/22 03:27 08/20/22 03:27 36.6 C 14 111/73 96 08/20/22 01:40 57 L 15 99 08/20/22 01:30 83 14 98 08/20/22 01:30 109/75 08/20/22 01:20 53 L 13 99 08/20/22 01:10 52 L 13 99 08/20/22 01:00 65 16 97 08/20/22 01:00 116/75 08/20/22 00:50 52 L 19 99 08/20/22 00:40 63 17 98 08/20/22 00:53 55 L O2 Del Method 08/20/22 07:54 Room Air 08/20/22 03:27 Room Air 08/20/22 03:27 Room Air 08/20/22 01:40 Room Air 08/20/22 01:30 08/20/22 01:30 08/20/22 01:20 08/20/22 01:10 08/20/22 01:00 08/20/22 01:00 08/20/22 00:50 08/20/22 00:40 08/20/22 00:53
[2022-08-20] MEDS: LACTATED RINGER'S 1,000 ML IV SCH (13:06)
[2022-08-20] MEDS ORDERED: D5NSS + 20MEQ KCL 20 MEQ/1,000 ML BAG IV SCH (16:00)
[2022-08-20 19:42] LABS: Adenovirus F 40/41 PCR Not Detected (NotDetected); Astrovirus PCR Not Detected (NotDetected); Campylobacter PCR Not Detected (NotDetected); Cryptosporidium PCR Not Detected (NotDetected); Cyclospora cayetanensis PCR Not Detected (NotDetected); Entamoeba histolytica PCR Not Detected (NotDetected); Enteroaggregative E.coli(EAEC) Not Detected (NotDetected); Enteropathogenic E.coli (EPEC) Not Detected (NotDetected); Enterotoxigenic E.coli (ETEC) Not Detected (NotDetected); Giardia lamblia PCR Not Detected (NotDetected); Norovirus GI/GII PCR Not Detected (NotDetected); Plesiomonas shigelloides PCR Not Detected (NotDetected); Rotavirus A PCR Not Detected (NotDetected); Salmonella PCR Not Detected (NotDetected); Sapovirus PCR Not Detected (NotDetected); Shiga-like Toxin E.coli (STEC) Not Detected (NotDetected); Shigella/Enteroinvasive E.coli Not Detected (NotDetected); Vibrio cholerae PCR Not Detected (NotDetected); Vibrio species PCR Not Detected (NotDetected); Yersinia enterocolitica PCR Not Detected (NotDetected)
[2022-08-21] MEDS: LACTATED RINGER'S 1,000 ML IV SCH (02:34)
[2022-08-21] MEDS: PIPERACILLIN/TAZOBACTAM 3.375 GM in DEXTROSE 5% 100 ML IV SCH (06:05)
[2022-08-21] MEDS: ENOXAPARIN INJ 40 MG/0.4 ML SYR SQ SCH (07:47)
[2022-08-21 08:24] LABS: Hematocrit (blood only) 41.7 % (42.0-52.0); Hemoglobin 14.5 g/dl (14.0-18.0); Mean Corpuscular Hemoglobin 29.9 pg (25.0-34.0); Mean Corpuscular Hgb Conc 34.8 g/dL (32.0-36.0); Mean Platelet Volume 10.1 fL (9.4-12.4); Platelet Count 225 K/uL (130-400); RDW Coefficient of Variation 12.1 % (11.5-14.5); Red Blood Count 4.85 M/uL (4.70-6.10)
[2022-08-21 08:43] LABS: Calcium 9.7 mg/dl (8.5-10.1); Potassium 3.8 mmol/L (3.5-5.1)
[2022-08-21 08:49] LABS: BUN Creatinine Ratio 13.3 (10-20); Creatinine Clr Calc Pharmacy 137.3 ml/min; Est GFR (African American) 146.8 ml/min; Est GFR (Non-African American) 126.7 ml/min; Phosphorus 4.1 mg/dl (2.5-4.9)
--- NOTE | 2022-08-21 09:35 | Surgery Progress Note ---
Date of Service August 21, 2022 Assessment & Plan (1) Lower abdominal pain: Plan: Abdominal pain completely resolved no n,v, tolerated full liquids no fevers or chills Plan Advance to regular diet stop IV Zosyn okay from surgical standpoint for discharge Admission and Anticipated Discharge Date Admission Date: August 20, 2022 Subjective feeling good, abdominal pain completely resolved had bowel movements x 3 last night and pain improved afterwards no n,v tolerated clears ready to go home Physical Exam Constitutional: WD/WN, vitals as above cooperative and comfortable; no acute distress and not ill appearing Respiratory: normal respiratory effort; no respiratory distress Gastrointestinal (Abdomen): Inspection/Auscultation: abdomen normal to inspection; abdomen not distended Percussion/Palpation: abdomen soft; abdomen nontender, no guarding and abdomen not rigid Skin: no rashes, warm and dry no jaundice Psychiatric: A+Ox3, euthymic affect Results & Data ([facility]) Vital Signs (Past 12 Hours) Vital Signs Temp Pulse Resp BP Pulse Ox O2 Del Method 08/21/22 07:54 36.9 C 63 14 123/81 98 Room Air 08/20/22 22:23 36.8 C 49 L 12 115/74 99 Room Air Laboratory Results 08/21/22 08/21/22 08/20/22 Range/Units 07:47 07:47 18:00 WBC 5.90 (4.8-10.8) K/ul RBC 4.85 (4.70-6.10) M/uL Hgb 14.5 (14.0-18.0) g/dl Hct 41.7 L (42.0-52.0) % MCV 86.0 (80.0-100.0) fL MCH 29.9 (25.0-34.0) pg MCHC 34.8 (32.0-36.0) g/dL RDW Std Deviation 38.0 (36.4-46.3) fL RDW Coeff of Kathrine 12.1 (11.5-14.5) % Plt Count 225 (130-400) K/uL MPV 10.1 (9.4-12.4) fL Immature Gran % (Auto) % Neut % (Auto) % Lymph % (Auto) % Hendricks % (Auto) % Eos % (Auto) % Baso % (Auto) % Neut # (Auto) (1.40-6.50) K/uL Lymph # (Auto) (1.2-3.4) K/uL Hendricks # (Auto) (0.11-0.59) K/uL Eos # (Auto) (0-0.50) K/uL Baso # (Auto) (0-0.2) K/uL Immature Gran # (Auto) (0.01-0.20) K/uL Sodium 137 (136-145) mmol/L Potassium 3.8 (3.5-5.1) mmol/L Chloride 102 (98-107) mmol/L Carbon Dioxide 31 (21-32) mmol/L Anion Gap 4 (3-11) BUN 11 (6-23) mg/dl Creatinine 0.83 (0.6-1.4) mg/dl Est Cr Clr Drug Dosing 137.3 ml/min Est GFR ( Amer) 146.8 ml/min Est GFR (Non-Af Amer) 126.7 ml/min BUN/Creatinine Ratio 13.3 (10-20) Glucose 98 (70-99(Fasting)) mg/dl Calcium 9.7 (8.5-10.1) mg/dl Phosphorus 4.1 (2.5-4.9) mg/dl Magnesium 2.0 (1.7-2.4) mg/dl Procalcitonin (0-0.5) ng/ml Urine Color Urine Appearance (Clear) Urine pH (4.5-7.5) Ur Specific Wentworth (1.000-1.030) Urine Protein (Negative) Urine Glucose (UA) (Negative) Urine Ketones (Negative) Urine Blood (Negative) Urine Nitrite (Negative) Urine Bilirubin (Negative) Urine Urobilinogen (Negative) Ur Leukocyte Esterase (Negative) Stl C. cayetanensis PCR Not Detected (NotDetected) Stool Rotavirus A PCR Not Detected (NotDetected) Stl Adenov F 40/41 PCR Not Detected (NotDetected) Stool Astrovirus (PCR) Not Detected (NotDetected) Stool Campylobacter PCR Not Detected (NotDetected) Stool Cryptosporidium PCR Not Detected (NotDetected) Stl E.coli Shiga Tox PCR Not Detected (NotDetected) Stl Enterotoxigenic E PCR Not Detected (NotDetected) Stool EPEC (PCR) Not Detected (NotDetected) Stool EAEC (PCR) Not Detected (NotDetected) Stl E. histolytica PCR Not Detected (NotDetected) Stool Giardia Lamblia PCR Not Detected (NotDetected) Stool Salmonella PCR Not Detected (NotDetected) Stool Sapovirus (PCR) Not Detected (NotDetected) Stl P. shigelloides PCR Not Detected (NotDetected) Stl Shigella/EIEC PCR Not Detected (NotDetected) St Y.enterocolitica PCR Not Detected (NotDetected) Stool Vibrio (PCR) Not Detected (NotDetected) Stl Vibrio cholerae PCR Not Detected (NotDetected) Stl Norovirus GI/GII PCR Not Detected (NotDetected) 08/20/22 08/20/22 08/20/22 Range/Units 11:48 09:11 09:11 WBC 7.06 (4.8-10.8) K/ul RBC 4.55 L (4.70-6.10) M/uL Hgb 13.6 L (14.0-18.0) g/dl Hct 39.1 L (42.0-52.0) % MCV 85.9 (80.0-100.0) fL MCH 29.9 (25.0-34.0) pg MCHC 34.8 (32.0-36.0) g/dL RDW Std Deviation 38.5 (36.4-46.3) fL RDW Coeff of Kathrine 12.3 (11.5-14.5) % Plt Count 174 (130-400) K/uL MPV 10.2 (9.4-12.4) fL Immature Gran % (Auto) 0.3 % Neut % (Auto) 69.7 % Lymph % (Auto) 18.8 % Hendricks % (Auto) 10.1 % Eos % (Auto) 0.7 % Baso % (Auto) 0.4 % Neut # (Auto) 4.92 (1.40-6.50) K/uL Lymph # (Auto) 1.33 (1.2-3.4) K/uL Hendricks # (Auto) 0.71 H (0.11-0.59) K/uL Eos # (Auto) 0.05 (0-0.50) K/uL Baso # (Auto) 0.03 (0-0.2) K/uL Immature Gran # (Auto) 0.02 (0.01-0.20) K/uL Sodium 137 (136-145) mmol/L Potassium 3.9 (3.5-5.1) mmol/L Chloride 106 (98-107) mmol/L Carbon Dioxide 27 (21-32) mmol/L Anion Gap 4 (3-11) BUN 11 (6-23) mg/dl Creatinine 0.67 (0.6-1.4) mg/dl Est Cr Clr Drug Dosing 170.1 ml/min Est GFR ( Amer) > 150.0 ml/min Est GFR (Non-Af Amer) 138.3 ml/min BUN/Creatinine Ratio 16.4 (10-20) Glucose 112 H (70-99(Fasting)) mg/dl Calcium 8.8 (8.5-10.1) mg/dl Phosphorus (2.5-4.9) mg/dl Magnesium (1.7-2.4) mg/dl Procalcitonin (0-0.5) ng/ml Urine Color Yellow Urine Appearance Clear (Clear) Urine pH 7.5 (4.5-7.5) Ur Specific Wentworth 1.008 (1.000-1.030) Urine Protein Negative (Negative) Urine Glucose (UA) Negative (Negative) Urine Ketones Negative (Negative) Urine Blood Negative (Negative) Urine Nitrite Negative (Negative) Urine Bilirubin Negative (Negative) Urine Urobilinogen Negative (Negative) Ur Leukocyte Esterase Negative (Negative) Stl C. cayetanensis PCR (NotDetected) Stool Rotavirus A PCR (NotDetected) Stl Adenov F 40/41 PCR (NotDetected) Stool Astrovirus (PCR) (NotDetected) Stool Campylobacter PCR (NotDetected) Stool Cryptosporidium PCR (NotDetected) Stl E.coli Shiga Tox PCR (NotDetected) Stl Enterotoxigenic E PCR (NotDetected) Stool EPEC (PCR) (NotDetected) Stool EAEC (PCR) (NotDetected) Stl E. histolytica PCR (NotDetected) Stool Giardia Lamblia PCR (NotDetected) Stool Salmonella PCR (NotDetected) Stool Sapovirus (PCR) (NotDetected) Stl P. shigelloides PCR (NotDetected) Stl Shigella/EIEC PCR (NotDetected) St Y.enterocolitica PCR (NotDetected) Stool Vibrio (PCR) (NotDetected) Stl Vibrio cholerae PCR (NotDetected) Stl Norovirus GI/GII PCR (NotDetected) 08/19/22 Range/Units 20:56 WBC (4.8-10.8) K/ul RBC (4.70-6.10) M/uL Hgb (14.0-18.0) g/dl Hct (42.0-52.0) % MCV (80.0-100.0) fL MCH (25.0-34.0) pg MCHC (32.0-36.0) g/dL RDW Std Deviation (36.4-46.3) fL RDW Coeff of Kathrine (11.5-14.5) % Plt Count (130-400) K/uL MPV (9.4-12.4) fL Immature Gran % (Auto) % Neut % (Auto) % Lymph % (Auto) % Hendricks % (Auto) % Eos % (Auto) % Baso % (Auto) % Neut # (Auto) (1.40-6.50) K/uL Lymph # (Auto) (1.2-3.4) K/uL Hendricks # (Auto) (0.11-0.59) K/uL Eos # (Auto) (0-0.50) K/uL Baso # (Auto) (0-0.2) K/uL Immature Gran # (Auto) (0.01-0.20) K/uL Sodium (136-145) mmol/L Potassium (3.5-5.1) mmol/L Chloride (98-107) mmol/L Carbon Dioxide (21-32) mmol/L Anion Gap (3-11) BUN (6-23) mg/dl Creatinine (0.6-1.4) mg/dl Est Cr Clr Drug Dosing ml/min Est GFR ( Amer) ml/min Est GFR (Non-Af Amer) ml/min BUN/Creatinine Ratio (10-20) Glucose (70-99(Fasting)) mg/dl Calcium (8.5-10.1) mg/dl Phosphorus (2.5-4.9) mg/dl Magnesium (1.7-2.4) mg/dl Procalcitonin 0.18 (0-0.5) ng/ml Urine Color Urine Appearance (Clear) Urine pH (4.5-7.5) Ur Specific [place]worth (1.000-1.030) Urine Protein (Negative) Urine Glucose (UA) (Negative) Urine Ketones (Negative) Urine Blood (Negative) Urine Nitrite (Negative) Urine Bilirubin (Negative) Urine Urobilinogen (Negative) Ur Leukocyte Esterase (Negative) Stl C. cayetanensis PCR (NotDetected) Stool Rotavirus A PCR (NotDetected) Stl Adenov F 40/41 PCR (NotDetected) Stool Astrovirus (PCR) (NotDetected) Stool Campylobacter PCR (NotDetected) Stool Cryptosporidium PCR (NotDetected) Stl E.coli Shiga Tox PCR (NotDetected) Stl Enterotoxigenic E PCR (NotDetected) Stool EPEC (PCR) (NotDetected) Stool EAEC (PCR) (NotDetected) Stl E. histolytica PCR (NotDetected) Stool Giardia Lamblia PCR (NotDetected) Stool Salmonella PCR (NotDetected) Stool Sapovirus (PCR) (NotDetected) Stl P. shigelloides PCR (NotDetected) Stl Shigella/EIEC PCR (NotDetected) St Y.enterocolitica PCR (NotDetected) Stool Vibrio (PCR) (NotDetected) Stl Vibrio cholerae PCR (NotDetected) Stl Norovirus GI/GII PCR (NotDetected)
--- NOTE | 2022-08-21 11:13 | Discharge Summary ---
Date of Service August 21, 2022 Admission HPI Per Admitting Provider History obtained from patient, family, and records. No significant medical history. Few days history of achy left lower quadrant pain with 1 episode of emesis. Initial constipation followed by loose stools after laxative intake. Dry cough and sore throat symptoms. Patient denies chest pain, SOB. Possible sick contacts at a recent gathering. Patient has not received COVID-19 vaccination. Patient near syncopal events. Somewhat confused as per family. IV Zosyn administered at the ER. 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 NAD, on RA. HEENT: No pallor, no icterus. Pupils equal, round and reactive to light. Oral mucosa moist. NECK: No JVD, no neck masses. HEART: S1 and S2 heard. Regular rate and rhythm. No murmur, no gallop. RESPIRATORY SYSTEM: Normal AP diameter. No accessory muscle use. No wheezing, no crackles. ABDOMEN: Soft, bowel sounds present, LLQ tender - mild, no distention. CENTRAL NERVOUS SYSTEM: No facial droop. Speech is clear. Obeys simple commands. Moves extremities. EXTREMITIES: No edema, no erythema seen. Discharge Data Allergies Allergy/AdvReac Type Severity Reaction Status Date / Time No Known Allergies Allergy Verified 08/19/22 21:29 Consultations 08/19/22 23:53 ED Decision to Admit Stat 08/20/22 02:27 Consult General Surgery Routine Ordered Studies 08/19/22 21:05 CT abd pelvis IV con only Stat CT head/brain wo con Stat Hospital Course (1) Lower abdominal pain: Plan 22-year-old male with no significant PMH presented to the ED 08/19 with complaint of left lower quadrant belly pain since Wednesday [employer]. He also reports having sore throat that started about the same time but has been resolved by the time he presented to the ED. Also possible sick contact at a recent gathering [employer]. Patient has not received COVID-19 vaccination. Patient reports being weak and also reports having diarrhea before presentation. He is being managed for the following: Left lower abdominal pain Possible viral enteritis Patient presents with left lower belly pain associated with sore throat at onset [see above]. Admitting WBC/lipase/UA/COVID-19, flu screen, RSV were WNL. Admitting imagings including CXR/head CT/CT AP fairly WNL. CTAP with mild pelvic free fluid which is nonspecific. No evidence of renal stones. Patient reported complete resolution of his belly pain and is tolerating advancement of diet. Discussed with general surgery, no acute abdomen/good to be discharged. Procalcitonin negative, antibiotic discontinued, less likely bacterial. Stool PCR negative. We will advance diet to regular, if tolerating without any issues then discharged in 2 to 3 hours. DVT prophylaxis: Lovenox subcu Full code Patient being discharged home with following instruction at the point of discharge: Follow-up with your primary care physician within a week time and likely you will need labs CBC/CMP/magnesium/phosphorus. You can take [id number] Pedialyte solution for the duration you have loose stool for, about 1 to 2 L/day to compensate for the fluid lost from your stool. Home Health Attestation I certify that this patient is under my care and that I, or a physicians casino assistant manager working with me, had a face to-face encounter that meets the home health [id number] encounter requirements with this patient. The encounter with the patient was in whole, or in part, for the following medical condition, which is the primary reason for home health care (list medical condition): I certify that, based on my findings, the following services are medically necessary home health services: My clinical findings support the need for the above services because: Further, I certify that my clinical findings support that this patient is homebound (i.e. absences from home require considerable and taxing effort and are for medical reasons or anabaptist services or infrequently or of short duration when for other reasons) because: Certification for Home Health Services: Based on the above findings, I certify that this patient is confined to the home and needs intermittent fci care, physical therapy and/or speech therapy or continues to need occupational therapy. The patient is under my care, and I have initiated the establishment of the plan of care. This patient will be followed by a physician who will periodically review the plan of care. Total Time Total Time Spent Total Time Spent (In Minutes): 40 Discharge Plan Discharge Items Patient Disposition: Home - Self-Care Reason For Visit: ABD PAIN Discharge Diagnosis: Viral enteritis Lower abdominal pain Condition on Discharge: Fair Activity: Resume your previous activity Non-emergency contact: Primary Care Provider Call non-emergency contact if: you have any medication questions, your symptoms worsen and your temperature is above 101 Follow-up/Referrals: PCP,NO [Primary Care Provider] - Diet: Regular Addtl Attending Provider Instructions: Follow-up with your primary care physician within a week time and likely you will need labs CBC/CMP/magnesium/phosphorus. You can take [id number] Pedialyte solution for the duration you have loose stool for, about 1 to 2 L/day to compensate for the fluid lost from your stool. Pending Studies at Discharge: No Stand-Alone Forms: My [facility], Smoking Cessation Medications and DC Order Prescriptions: No Action No Known Home Medications Discharge Orders: Discharge Order (Routine); Ordered 08/21/22 Ordered By: Jeny Dickson Admission Data Admit Date/Time: 08/20/22 00:26 Attending Provider: Jeny Dickson Admit Provider: Erick Esteban Primary Care Provider: PCP,NO Other Providers: Erick Esteban ; Gabriel Noble
== END 2022-08-21 14:33 | disposition home or self-care (01) | DRG 392 ==
LOC: ED 20:40 → 3W 08-20 00:26